=== PATIENT | male | born 1945 | race Caucasian/White ===

== ENCOUNTER 2017-09-13 10:44 | Inpatient (IN) | payer MEDICARE, OTHER ==
[~2017-09-13] VITALS: Ht 170.2 cm; Wt 76.5 kg
[2017-09-13 10:56] VITALS: BP 123/62
[2017-09-13] MEDS ORDERED: REQUIP1 MG PO (11:05)
[2017-09-13] MEDS ORDERED: ZYRTEC 10 MG TA10 MG PO (11:06)
[2017-09-13] MEDS ORDERED: [UNRECOGNIZED DRUG - CODE] PO (11:07)
[2017-09-13] MEDS ORDERED: SIMVASTATIN40 MG PO (11:07)
[2017-09-13] MEDS ORDERED: ZETIA10 MG PO (11:07)
[2017-09-13] MEDS ORDERED: ASPIR 8181 MG PO (11:07)
[2017-09-13] MEDS ORDERED: ARICEPT 5 MG TAB5 MG PO (11:07)
[2017-09-13] MEDS ORDERED: IBUPROFEN 200200 M1 PO (11:08)
[2017-09-13] MEDS ORDERED: MAGOX 400400 MG PO (11:08)
[2017-09-13] MEDS ORDERED: TUMS PO (11:08)
[2017-09-13] MEDS ORDERED: APAP650 PO (11:08)
[2017-09-13] MEDS ORDERED: FISH OIL 1,001000 M2 PO (11:09)
[2017-09-13 11:14] LABS: HEMATOCRIT 38.3 % (42.0-52.0); HEMOGLOBIN 12.7 gm/dL (14.0-18.0); MCHC 33.2 g/dL (28.0-37.0); MCV 93.3 fL (80.0-100.0); MPV 8.2 fl. (7.2-11.1); NUCLEATED RBCS 0 /100WBC; PLATELET COUNT* 322 thou/uL (150-400); RDW-CV 13.4 % (10.5-14.5); WBC 10.7 thou/uL (4.0-11.0)
[2017-09-13 11:25] LABS: INR 1.1; PROTIME 10.6 Seconds (9.20-11.50)
[2017-09-13 11:29] LABS: ANION GAP 9 mmol/L (7-16); BUN 17 mg/dL (7-18); CALCIUM 8.8 mg/dL (8.5-10.1); CHLORIDE 101 mmol/L (98-107); CO2 27 mmol/L (21-32); CREATININE 1.1 mg/dL (0.6-1.3); GLUCOSE 102 mg/dL (70-99); SODIUM 137 mmol/L (136-145)
[2017-09-13 11:48] LABS: ALBUMIN 3.3 g/dL (3.4-5.0); ALKALINE PHOSPHATASE 133 U/L (46-116); CK-MB MASS < 0.5 ng/mL (<0.5-3.6); NT-PRO BRAIN NAT PEPTIDE 580 pg/mL (<300); SGOT 52 U/L (15-37); SGPT 56 U/L (30-65); TOTAL BILIRUBIN 0.5 mg/dL (<0.1-1.0); TOTAL PROTEIN 7.6 g/dL (6.4-8.2); TROPONIN-I LEVEL <0.06 ng/mL (<0.06)
[2017-09-13 11:52] LABS: ABSOLUTE LYMPHOCYTES 1.1 thou/uL (0.8-5.3); ABSOLUTE MONOCYTES 0.7 thou/uL (0.0-1.2); ABSOLUTE NEUTROPHILS 8.9 thou/uL (1.6-8.1); PLATELET ESTIMATE ADEQUATE
[2017-09-13 12:11] LABS: URINE BILIRUBIN NEGATIVE (Negative); URINE BLOOD NEGATIVE (Negative); URINE CLARITY CLEAR; URINE COLOR YELLOW; URINE GLUCOSE-RANDOM NEGATIVE (Negative); URINE KETONES TRACE (Negative); URINE LEUKOCYTES-REFLEX NEGATIVE (Negative); URINE NITRITE-REFLEX NEGATIVE (Negative); URINE PROTEIN TRACE (Negative); URINE UROBILINOGEN 0.2 E.U./dl (0.2-1.0)
[2017-09-13 13:28] VITALS: BP 130/62
[2017-09-13 13:45] VITALS: BP 110/52
[2017-09-14 00:50] VITALS: BP 134/69
[2017-09-14 04:00] VITALS: BP 139/69
[2017-09-14 05:02] LABS: HEMATOCRIT 32.1 % (42.0-52.0); MCH 31.7 pg (26.0-34.0); MCHC 34.1 g/dL (28.0-37.0); MPV 7.4 fl. (7.2-11.1); RBC 3.46 mil/uL (4.50-6.00); WBC 9.1 thou/uL (4.0-11.0)
[2017-09-14 05:17] LABS: CALCIUM 7.5 mg/dL (8.5-10.1); MAGNESIUM 1.7 mg/dL (1.8-2.4); POTASSIUM 3.6 mmol/L (3.5-5.1)
[2017-09-14 09:30] VITALS: BP 116/57
[2017-09-14 11:00] VITALS: BP 103/50
--- NOTE | 2017-09-14 14:29 | EKG ---
[place] [address] ELECTROCARDIOGRAM REPORT Name: MICHELLE MCKAY Room: [address] IN [facility].#: [id number] Admission: 09/13/17 Attend Phys: Sudhakar Churchill, Discharge: Date of : 41 Report #: [id number] THIS REPORT FOR: //name// [facility] ED Test Date: 2017-09-13 Test Time: 11:08:27 Pat Name: MICHELLE MCKAY Department: Room: Gender: Assembler Faucets: Benton LOMAX : 1945 Requested By: Artur Morales Order Number: [id number] MD: Marquise Madrid Measurements Intervals [place] Rate: 77 P: 43 NE: 151 QRS: -1 QRSD: 95 T: 29 QT: 361 QTc: 409 Interpretive Statements Sinus rhythm Abnormal R-wave progression, early transition No previous ECG available for comparison Electronically Signed On 09-14-2017 14:28:53 CDT by Marquise Madrid [email or web address] <ELECTRONICALLY SIGNED> By: Marquise Madrid MD, [facility] 09/14/17 1428 1108 Marquise Madrid MD, FACC /EPI
[2017-09-14 16:00] VITALS: BP 123/65
[2017-09-14 20:00] VITALS: BP 143/64
[2017-09-15] VITALS: BP 136/69
[2017-09-15 03:39] VITALS: BP 138/64
[2017-09-15 05:24] LABS: HEMATOCRIT 32.4 % (42.0-52.0); MCH 31.6 pg (26.0-34.0); MCHC 33.9 g/dL (28.0-37.0); MCV 93.2 fL (80.0-100.0); MPV 7.9 fl. (7.2-11.1); RBC 3.48 mil/uL (4.50-6.00); RDW-CV 13.1 % (10.5-14.5); WBC 9.1 thou/uL (4.0-11.0)
[2017-09-15 05:41] LABS: ALBUMIN 2.4 g/dL (3.4-5.0); CALCIUM 7.7 mg/dL (8.5-10.1); CREATININE 1.1 mg/dL (0.6-1.3); POTASSIUM 3.7 mmol/L (3.5-5.1); TOTAL BILIRUBIN 0.5 mg/dL (<0.1-1.0); TOTAL PROTEIN 6.2 g/dL (6.4-8.2)
[2017-09-15 09:00] VITALS: BP 145/72
[2017-09-15 12:00] VITALS: BP 133/68
[2017-09-15 16:00] VITALS: BP 126/66
[2017-09-15 20:00] VITALS: BP 131/67
[2017-09-16] VITALS: BP 149/79
[2017-09-16 03:49] VITALS: BP 147/75
[2017-09-16 09:30] VITALS: BP 119/62
[2017-09-16 11:45] VITALS: BP 121/68
[2017-09-16 15:52] VITALS: BP 117/62
[2017-09-16 20:00] VITALS: BP 128/68
[2017-09-17] VITALS: BP 140/67
[2017-09-17 04:00] VITALS: BP 131/64
[2017-09-17 08:00] VITALS: BP 148/72
[2017-09-17 11:33] VITALS: BP 135/63
[2017-09-17] MEDS ORDERED: KEFLEX500 M1 PO (13:03)
[2017-09-17] MEDS ORDERED: PREDNISONE 10 M10 MG PO (13:10)
[2017-09-17 13:47] VITALS: BP 135/63
[2017-09-17] MEDS ORDERED: LEVAQUIN 500 M500 M2 PO (15:18)
== END 2017-09-17 16:00 | disposition home or self-care (01) | DRG 871 ==
LOC: M.ERS 10:44 → M.2W 12:24 → M.TBA-ER 12:24 → M.2W 13:45
PROVIDERS: Family Medicine; ADMIT Family Medicine
DX: A41.9 Sepsis, unspecified organism (principal); J69.0 Pneumonitis due to inhalation of food and vomit; G20 Parkinson's disease; E78.00 Pure hypercholesterolemia, unspecified; H10.9 Unspecified conjunctivitis; F02.80 Dementia in other diseases classified elsewhere, unspecified severity, without behavioral disturbance, psychotic disturbance, mood disturbance, and anxiety; D64.9 Anemia, unspecified; Z79.2 Long term (current) use of antibiotics; Z79.82 Long term (current) use of aspirin; Z79.899 Other long term (current) drug therapy; Z82.49 Family history of ischemic heart disease and other diseases of the circulatory system

== ENCOUNTER 2017-10-03 15:42 | Inpatient (IN) | payer MEDICARE, OTHER ==
[~2017-10-03] VITALS: Ht 167.6 cm; Wt 69.9 kg
[~2017-10-03 15:42] MED LIST: APAP650 PO; ARICEPT 5 MG TAB5 MG PO; ASPIR 8181 MG PO; FISH OIL 1,001000 M2 PO; IBUPROFEN 200200 M1 PO; KEFLEX500 M1 PO; LEVAQUIN 500 M500 M2 PO; MAGOX 400400 MG PO; PREDNISONE 10 M10 MG PO; REQUIP1 MG PO; SIMVASTATIN40 MG PO; TUMS PO; ZETIA10 MG PO; ZYRTEC 10 MG TA10 MG PO; [UNRECOGNIZED DRUG - CODE] PO
[2017-10-03 18:27] VITALS: BP 127/59
--- NOTE | 2017-10-03 19:39 | NUR ---
PT. ARRIVED TO REHAB UNIT AT 1800 PER W/C FROM HOME BY PRIVATE CAR. ALERT AND ORIENTED X 4. HX OF S/P SEPSIS ASPIRATION PNEUMONIA WENT HOME WITH OUTPT. THERAPIES BUT WASNT ABLE TO MAKE PROGRESS SO ADMITTED TO INPT. REHAB. ORIENTED TO ROOM 321 AND AND DAUGHTER HERE PT. AND FAMILY ANSWERED QUESTIONS ON ADMISSION ASSESSMENT. SKIN INTACT NO OPEN AREAS. VOIDED 50CCS PER URINAL HUY URINE. NEEDS ASSIST WITH TURNING STIFFNESS PARKINSONS HX OF CHRONIC BACK PAIN HAS BONE PAIN STIMULATOR RT. LOWER BACK WILL CHARGE IT DAILY. DID C/O LOW BACK PAIN WHILE IN W/C. ONCE IN BED NO FURTHER C/O PAIN. TRANSFERS WITH 2 ASSIST FROM W/C TO BED WITH GAIT BELT AND CUES. REASSURED PT. WILL GET STRONGER AND WILL BE BUSY WITH THERAPIES TOMORROW. CALL LIGHT CONVENIENT FOR PT. USE. REPORT TO NEXT SHIFT.
[2017-10-04 04:48] LABS: HEMATOCRIT 34.7 % (42.0-52.0); HEMOGLOBIN 11.3 gm/dL (14.0-18.0); MCH 30.3 pg (26.0-34.0); MCHC 32.6 g/dL (28.0-37.0); RBC 3.73 mil/uL (4.50-6.00); RDW-CV 14.8 % (10.5-14.5); WBC 12.7 thou/uL (4.0-11.0)
[2017-10-04 04:58] LABS: CALCIUM 8.8 mg/dL (8.5-10.1); POTASSIUM 4.2 mmol/L (3.5-5.1)
--- NOTE | 2017-10-04 05:04 | NUR ---
ASSUMED CARES AT 1915. PT ALERT AND ORIENTED. PLEASANT AND COOPERATIVE. AND DAUGHTER HERE FOR SHORT TIME BEFORE LEAVING. PT DENIED ANY NEED FOR PAIN MEDS. HAS PRODUCTIVE COUGH. COUGHING UP THICK PHLEGM. MUCINEX GIVEN. TAKES PILLS WHOLE WITHOUT ISSUES. NURSING ASSISTED PT WITH URINAL. PT TURNED THROUGHOUT THE NIGHT. SLEPT WELL OTHERWISE. USING CALL LIGHT APPROPRIATELY. BED ALARM ON.
[2017-10-04 07:41] VITALS: BP 123/58
[2017-10-04 08:02] VITALS: BP 123/58
--- NOTE | 2017-10-04 17:44 | NUR ---
ASSUMED CARE AT 0730 PATIENT ALERT/ORIENTED, PAIN MED GIVEN AT 1200 FOR LEFT SHOULDER PAIN, UP WITH MAX OF ONE AND WALKER/GAIT BELT. PARTICIPATED IN ALL THERAPIES TODAY, TO DINING ROOM FOR MEALS, HOURLY ROUNDING COMPLETED. BED/CHAIR ALARMS IN PLACE, CALL LIGHT IN REACH.
--- NOTE | 2017-10-04 20:00 | NUR ---
SITTING UP IN RECLINER. PAIN MED GIVEN FOR C/O BACK PAIN RATED "5". TOOK MEDS WHOLE WITH WATER - TWO SMALL MEDS AT A TIME AND ONE BIG PILL AT A TIME. SAW PATIENT GETTING OUT OF HIS RECLINER WITHOUT CALLING FOR ASSIST. PATIENT STATES WAS TRYING TO USE HIS URINAL. PATIENT WAS INCONTINENT. INCONTINENT PAD WAS SATURATED AND URINE SPILLED ONTO THE FLOOR. TRANSFERRED FROM RECLINER TO THE BED WITH CGA, GAITBELT, CUEING. LEGS LIFTED INTO BED. PATIENT UNABLE TO STRAIGHTEN HIS BACK. SCROTUM SLIGHTLY RED. KASSY CARE GIVEN AND MOISTURE BARRIER APPLIED.
[2017-10-04 20:03] VITALS: BP 106/56
--- NOTE | 2017-10-05 05:23 | NUR ---
RESTED QUIELTY. NO FURTHER C/O PAIN. CALLED FOR ASSIST WITH THE URINAL DURING THE NIGHT. HOURLY ROUNDING IN PROGRESS.
[2017-10-05 08:24] VITALS: BP 120/60
--- NOTE | 2017-10-05 18:03 | NUR ---
ASSUMED CARE AT 0730 PATIENT ALERT/ORIENTED, NO COMPLAINTS OF PAIN THIS SHIFT, UP WITH ASSIST OF ONE AND WALKER/GAIT BELT, HOURLY ROUNDING COMPLETED, BED/CHAIR ALARMS IN PLACE, CALL LIGHT IN REACH. TO DINING ROOM FOR MEALS, VISITED WITH FAMILY ALL DAY. ORDER PLACED FOR NEUROLOGY CONSULT BY DR DANIEL. WILL VERIFY WITH DR MCKEON IN AM IF SHE WANTS THIS CONSULT OR NOT.
[2017-10-05 19:30] VITALS: BP 120/68
--- NOTE | 2017-10-05 20:25 | NUR ---
RESTING QUIETLY IN BED AND WATCHING TV. ASSISTED WITH REPOSITIONING. PAIN MED GIVEN FOR C/O BACK PAIN. TAKES 2 SMALL PILLS WHOLE AT A TIME AND BIG PILLS WHOLE ONE AT A TIME WITH WATER. VOIDED DARK/YELLOW URINE PER URINAL. STAFF POSITIONS HOLDS AND EMPTIES URINAL.
[2017-10-05 21:08] LABS: INR 1.1; PROTIME 10.4 Seconds (9.20-11.50)
--- NOTE | 2017-10-06 05:09 | NUR ---
RESTED QUIETLY. CALLED FOR ASSIST WITH URINAL. HOURLY ROUNDING IN PROGRESS.
[2017-10-06 08:01] VITALS: BP 120/71
--- NOTE | 2017-10-06 14:47 | NUR ---
SW met with pt pt to complete initial assessment, introduce self, and SW role. Pt alert and oriented. Pt lives at home with who can be with him all of the time. Pt has walker and grab bars. Pt does not recall and history of services. Pt expressed having back pain but was hopeful he could have that managed and be able to return home safely. Pt did not express any questions or concerns at this time. SW to continue to follow to assist with safe dc planning.
--- NOTE | 2017-10-06 15:11 | NUR ---
ASSUMED CARE AT 0730. ALERT ORIENTED PLEASANT COOPERATIVE. HX OF PARKINSONS AND S/P ASPIRATION PNEUMONIA. TRANSFERS WITH MIN ASSIST FROM LYING TO SITTING POSITION SIDE OF BED ABLE TO AMBULATE A FEW STEPS FROM BED TO RECLINER CHAIR FOR BREAKFAST. USED URINAL WITH NURSE ASSIST VOIDED 100CCS DARK HUY URINE KASSY CARE GIVEN AND PULLUP APPLIED. FEEDS SELF WITH SETUP. PARTICIPATING IN THERAPIES THROUGHOUT THE DAY. TO DR REINOSO W/C FOR MEALS FAMILY HERE MUCH OF THE DAY. TAKES MEDS 1-2 AT A TIME WITH WATER WITHOUT DIFFICULTY. HAS A BRACE HE WEARS FOR CHRONIC BACK ISSUES AND ALSO HAS NERVE STIMULATOR MEDICATED X 1 WITH IBUPROFEN BEFORE THERAPIES START THIS A.M. PAULA WAS CALLED FOR ADJUSTMENT AND DR. VASQUEZ WAS ONSULTED RE PARKINSONS HERE AT 1525 TO SEE PT. USES CALL LIGHT APPROPRIATELY FOR ASSIST. WAFFLE CUSHION PLACED IN RECLINER.
[2017-10-06 19:30] VITALS: BP 116/62
--- NOTE | 2017-10-07 05:00 | NUR ---
ASSUMED CARES AT 1920. PT ALERT AND ORIENTED. PLEASANT. C/O BACK PAIN. IBUPROFEN GIVEN. TAKES PILLS WHOLE WITHOUT ISSUES. HAS DRIBBLING WITH URINATION. NURSING ASSISTS WITH URINAL PLACEMENT. NEEDS ASSIST WITH URINARY ACCIDENTS. DOES HAVE LOOSE COUGH. MUCINEX GIVEN. SLEPT OFF AND ON. CALL LIGHT IN REACH. BED ALARM ON.
[2017-10-07 07:50] VITALS: BP 134/77
--- NOTE | 2017-10-07 18:03 | NUR ---
ASSUMED CARE AT 0730. ALERT ORIENTED PLEASANT COOPERATIVE. HX OF PARKINSONS AND ASPIRATION PNEUMONIA HX. TRANSFERS WITH 1 ASSIST G BELT WALKER CUES. MEDICATED WITH PRN MED FOR C/O BACK PAIN WITH SOME RELIEF STATED. PARTICIPATING IN THERAPIES THROUGHOUT THE DAY. TAKES MEDS WITHOUT DIFFICULTY IN APPLESAUCE WHOLE. FAMILY HERE MOST OF THE DAY. TO DR FOR LUNCH MEAL. APPETITE GOOD. FEEDS SELF WITH SET UP. USES CALL LIGHT APPROPRIATELY FOR ASSISTANCE.
[2017-10-07 19:58] VITALS: BP 132/76
--- NOTE | 2017-10-08 05:07 | NUR ---
ASSUMED CARES AT 1920. PT ALERT AND ORIENTED. PLEASANT. C/O BACK PAIN. IBUPROFEN AND TYLENOL GIVEN. TAKES PILLS WHOLE WITHOUT ISSUES. HE IS MOD ASSIST WITH GAIT BELT AND WALKER. UP TO BATHROOM. NEEDS CUEING FOR PROPER POSTURE. TENDS TO LEAN FORWARD. LIFTING ASSIST FROM SIT TO STAND. NURSING ASSISTED WITH URINAL PLACEMENT. ASSISTED WITH PERICARES DUE TO DRIBBLING. HAS LOOSE COUGH. MUCINEX GIVEN. HAD MORE COUGHING TONIGHT. DID NOT SLEEP WELL. HE SAYS IS MORE SORE DUE TO THERAPIES. SLEPT OFF AND ON. CALL LIGHT IN REACH AND BED ALARM ON.
[2017-10-08 07:48] VITALS: BP 134/71
--- NOTE | 2017-10-08 08:00 | NUR ---
Pt resting in bed, appears alert o x4, denies chest pain, SOB, does C/O chronic back pain, generalized weakness, up with therapy w/c and walker/gait belt, wears neuro-stimulator for back pain
--- NOTE | 2017-10-08 15:59 | NUR ---
pt up in chair most of day, remains alert o x 4, C/O generalized weakness, needs min-mod assit with transfers, able to bathe self at sink with set up, once up in W/C., could brush teeth Pt needs min-mod assit with ambulation, amb with walker, C/O generalized back pain. Can feed self with set up. Difficulty dressing self secondaery to generalized weakness. UNable to perform taskes independently other tahn feeding self. Spouse here most of day. needs assistance with urinal, dribbles. Unable to toliet self independently
[2017-10-08 19:58] VITALS: BP 130/75
--- NOTE | 2017-10-08 23:31 | NUR ---
ASSUMED CARE AT 1930. RESTING IN RECLINER UNTIL AROUND 2099. WAS CHARGING HIS BONE STIMULATOR. HERE UNTIL AROUND 2029. UP WITH MIN LIFTING, GAIT BELT, WALKER, NEEDS HELP GETTING BOTH LEGS INTO BED. VOIDED PER TOILET AT HS, THEN USES URINAL REST OF NIGHT WITH NURSING ASSISTING WITH PLACEMENT. NEEDS CUEING TO STAND TALL DUE TO SCOLIOSIS. DENIED PAIN AT HS. TAKES PILLS WHOLE WITH APPLESAUCE. NO COUGH NOTED. HAD LARGE BM THIS EVENING. HOURLY ROUNDS CONTINUE. BED ALARM ON. CALL LITE IN REACH.
--- NOTE | 2017-10-09 05:55 | NUR ---
SLEPT MUCH OF THE NIGHT, VOIDS PER URINAL. NURSING ASSISTS WITH PLACEMENT OF URINAL. TURNED Q2H. NO C/O PAIN. HOURLY ROUNDS CONTINUE. BED ALARM ON. CALL LITE IN REACH.
--- NOTE | 2017-10-09 06:41 | NUR ---
HAS BEEN VOIDING IN 75-150 ML INCREMENTS OF HUY URINE. BLADDER SCANNED IMMEDIATELY AFTER VOIDING, MAX RESIDUAL FOUND WAS 63 ML. PATIENT STATES HE FEELS LIKE HE EMPTIES BLADDER.
[2017-10-09 07:50] VITALS: BP 138/74
--- NOTE | 2017-10-09 15:36 | NUR ---
SW met with pt and pt family to review team conference summary. Plan for pt to remain on rehab at least another week and for team to reassess pt length of stay during team conference on next Friday. Pt in agreement with plan as well as pt family. Pt and pt family were upset that pt was received speech therapy and team is aware and addressing situation with pt and pt family. SW to continue to follow to assist with safe dc planning.
--- NOTE | 2017-10-09 18:04 | NUR ---
PATIENT RESTING IN CHAIR. PATIENT WORKED WITH THERAPIES TODAY. PATIENT DOES NOT LIKE OR WANT SPEECH THERAPIES ANYMORE, CYNTHIA AND WAI NOTIFIED. CYNTHIA SAT DOWN WITH PATIENT AND FAMILY ABOUT SPEECH THERAPY. CYNTHIA SPOKE WITH DR MCKEON WHO IS TO TALK WITH PATIENT IN AM. PATIENT HAD COMPLAINTS OF BACK PAIN THIS AM, DENIED NEED FOR MEDICATION THIS AFTERNOON. PATIENT IS UP WITH MODERATE ASSIST WITH GAIT BELT AND WALKER. PATIENT USES URINAL. PATIENT DENIES ANY NEEDS AT THIS TIME. CALL LIGHT WITHIN REACH. WILL CONTINUE TO MONITOR
[2017-10-09 20:00] VITALS: BP 109/62
--- NOTE | 2017-10-10 05:04 | NUR ---
ASSUMED PT CARE AT 1930. PT SITTING UP IN RECLINER AT SHIFT CHANGE. UP WITH LIFTING ASSIST, GAIT BELT AND WALKER. NEEDS HELP GETTING BOTH LEGS INTO BED. TAKES PILLS WHOLE IN APPLESAUCE. PRN PAIN MEDICATION HS FOR BACK PAIN. TURNED Q2H. USED URINAL OVERNIGHT WITH STAFF HOLDING AND EMPTYING. CALL LIGHT AND FREQUENTLY USED ITEMS WITHIN REACH. USES CALL LIGHT APPROPRIATELY. BED ALARM ON FOR SAFETY. HOURLY ROUNDING IN PROGRESS, WILL CONTINUE TO MONITOR.
[2017-10-10 08:00] VITALS: BP 134/71
--- NOTE | 2017-10-10 15:23 | NUR ---
I have reviewed the documentation by MELI FLORES from 10/09/17 to 10/10/17 and I concur with it. DION NAZARIO.
--- NOTE | 2017-10-10 16:41 | NUR ---
ASSUMMED CARE OF PT AT 0730, PT ALERT, FORGETFUL, TRANSFERS WITH ASSIST OF 1, GB WALKER CUEING, PT DENIES PAIN, MIDLINE DRESSING C/D/I, ILEOSTOMY DRAINING MODERATE AMOUNT OF LIQUID STOOL, APPLIANCE LEAKING, CHANGED X 1 THIS SHIFT, PT TOLERATING NECTAR THICK LIQUIDS, TAKES PILLS CRUSHED IN APPLESAUCE, MUCOUS DRAIN IN LEFT ABDOMEN INTACT, ABDOMINAL BINDER INTACT, PT C/O BLADDER SPASMS, MEDICATED PER ORDER, BLOODY URINE IN CATHETER BAG, PT ENCOURAGED TO DRINK MORE LIQUIDS, PT FALLS ASLEEP EASILY IF NOT STIMULATED, PARTCIPATED IN ALL THERAPIES, HOURLY ROUNDING COMPLETED, TO DININGROOM FOR MEALS, ASSESSMENT COMPLETE, WILL CONTINUE TO MONITOR.
--- NOTE | 2017-10-10 18:24 | NUR ---
ASSUMED CARE AT 0730, PATIENT ALERT/ORIENTED, UP WITH ASSIST OF ONE AND WALKER GAIT BELT, NO COMPLAINTS OF PAIN THIS SHIFT, PARTICIPATED IN ALL THERAPIES TODAY, TO DINING ROOM FOR MEALS, BED/CHAIR ALARMS IN PLACE, CALL LIGHT IN REACH, HOURLY ROUNDING COMPLETED.
[2017-10-10 19:21] VITALS: BP 119/67
--- NOTE | 2017-10-10 19:30 | NUR ---
RESTING QUIETLY IN BED WATCHING TV AND VISITING WITH AND DAUGHTER. IN GOOD SPIRITS - MAKING JOKES. PAIN MEDS GIVEN FOR C/O BACK PAIN RATED "7". TOOK MEDS WHOLE WITH WATER - TWO SMALL ONES AT A TIME AND ONE BIG ONE AT TIME. REQUIRES CRUZ TO BE POSITIONED HELD AND EMPTIED. VOIDS HUY URINE. VOIDS FREQUENTLY AND HAS HESITANCY.
--- NOTE | 2017-10-11 05:39 | NUR ---
RESTED ON/OFF. COUGHS INTERMITTENTLY THROUGHOUT THE NIGHT. PRN MUCINEX WAS GIVEN WITH HS MEDICATIONS. PRN IBUPROFEN GIVEN AT 0252 FOR C/O BACK PAIN RATED "5" WITH RELIEF. ASSISTED WITH REPOSITIONING AND USING THE URINAL THROUGHOUT THE NIGHT. VOIDS 25CC TO 50CC OF URINE AT A TIME. HOURLY ROUNDING IN PROGRESS.
[2017-10-11 07:30] VITALS: BP 124/61
--- NOTE | 2017-10-11 16:40 | NUR ---
ASSUMED CARE AT 0730. ANNABELLE GASPAR [facility]. HX OF PARKINSONS S/P SEPSIS AND ASPIRATION PNEUMONIA. TRANSFERS WITH MIN ASSIST G BELT WALKER AMBULATES FROM BED TO RECLINER FOR BREAKFAST FEEDS SELF WITH SET UP TAKES MEDS WITH APPLESAUCE WITHOUT DIFFICULTY. PARTICIPATES IN THERAPY. VOIDS PER URINAL 50CCS HUY URINE SEVERAL TIMES VOIDED X 1 IN TOILET. AND DAUGHTER HERE VISITING THROUGH THE DAY. USES CALL LIGHT FOR ASSISTANCE BED CHAIR ALARM FOR PT. SAFETY.
[2017-10-11 19:35] VITALS: BP 143/80
--- NOTE | 2017-10-11 20:00 | NUR ---
SITTING UP IN RECLINER WITH LEGS ELEVATED. PAIN MEDS GIVEN FOR C/O BACK PAIN. TOOK MEDS WHOLE WITH WATER. DAUGHTER AND VISITING. TRANSFERRED FROM RECLINER TO BED WITH CGA, GAITBELT, WALKER, CUEING.
--- NOTE | 2017-10-12 05:29 | NUR ---
ASSISTED WITH REPOSITIONING AND USING THE URINAL THROUGHOUT THE NIGHT. DENIED ANY NEED FOR MORE PAIN MEDS. HOURLY ROUNDING IN PROGRESS.
[2017-10-12 07:30] VITALS: BP 117/64
--- NOTE | 2017-10-12 15:05 | NUR ---
ASSUMED CARE AT 0730. ALERT ORIENTED PLEASANT COOPERATIVE. HX OF PARKINSONS. TRANSFERS WITH 1 ASSIST G BELT WALKER NEEDS ASSIST TO GET FROM LYING TO SITTING ON EDGE OF BED. AMBULATES WITH WALKER FROM BED TO RECLINER FOR BREAKFAST MEAL FEEDS SELF TAKES MEDS WITH APPLESAUCE WITHOUT DIFFICULTY. VOIDS PER URINAL SMALL AMTS DARK HUY URINE WITH ASSIST FOR PLACEMENT. MEDICATED X 1 FOR C/O BACK PAIN AROUND LUNCH TIME. HX OF CHRONIC BACK PAIN WALKS HUNCHED OVER WITH WALKER CAN'T STAND UP STRAIGHT. DAUGHTER HERE MOST OF THE DAY AT BEDSIDE. UP IN RECLINER MOST OF THE DAY LYING IN BED ALSO AT TIMES.
[2017-10-12 19:54] VITALS: BP 119/66
--- NOTE | 2017-10-12 22:25 | NUR ---
ASSUMED CARE AT 1930. PATIENT RESTING IN RECLINER WITH LEGS ELEVATED AND HEELS OFFLOADED VISITING WITH FAMILY. TO BED AROUND 2014. UP WITH ONE, GAIT BELT, WALKER, CUEING. TOOK PILLS IN ENSURE PUDDING BECAUSE OF POOR PO INTAKE TODAY. TOLERATED WELL. VOIDS 50-100 ML PER URINAL, NURSING ASSISTS WITH PLACEMENT AND EMPTIES. TQ2. TOOK IBUPROFEN AT HS. HOURLY ROUNDS CONTINUE. BED ALARM ON. CALL LITE IN REACH.
--- NOTE | 2017-10-13 06:11 | NUR ---
SLEPT OFF AND ON THROUGH THE SHIFT. MEDICATED FOR PAIN TWICE WITH RELIEF. ASSISTED WITH TURNS. VOIDS PER URINAL, NURSING ASSISTS WITH PLACEMENT AND EMPTIES. HOURLY ROUNDS CONTINUE. BED ALARM ON. CALL LITE IN REACH.
[2017-10-13 07:30] VITALS: BP 119/63
--- NOTE | 2017-10-13 09:40 | CON ---
[facility] [address] [place] [address] CONSULTATION Name: MICHELLE MCKAY Room: [address] IN M.R.#: [id number] Admission: 10/03/17 Attend Phys: Chichi Jorgensen DO Discharge: Date of : 41 Report #: [id number] THIS REPORT FOR: //name// CC: Chichi Mendieta DATE OF SERVICE: 10/06/2017 HISTORY OF PRESENT ILLNESS: This is a 72-year-old male patient who was evaluated by me for the possibility of Parkinson disease. This patient gives a history that he was diagnosed with Parkinson disease at [facility]. He had some back problems and he saw his surgeon who referred him to a neurologist and she diagnosed him with Parkinson disease. He was given some medication, but he does not remember. We will try to get the record from his neurologist. He has been here because of failure to try and he also had some question of aspiration pneumonia. He said he did not have much tremor and it was mostly the rigidity. His memory is poor and his family is not here. REVIEW OF SYSTEMS: Indicate he does have trouble with aspiration pneumonia. He did have some workup done with his neurologist. He thinks he may have had a SAFIA scan also. He thinks either he had an MRI or a CAT scan. He is on donepezil but I do not know whether they found him to have dementia. He does have a history of high cholesterol. He has a nerve stimulator and he had a back surgery. This history is from him. It needs to be confirmed. That was his relevant 14-point review of systems. PAST MEDICAL HISTORY: Positive for Parkinson disease. FAMILY HISTORY: Negative for any essential tremor. SOCIAL HISTORY: Unremarkable. PHYSICAL EXAMINATION: Indicate he is alert, he is responsive. He can follow simple commands. He is oriented. His speech, concentration looks unremarkable. He does appear to be somewhat rigid in all 4 extremities. Cranial nerve examination 2-12 is unremarkable. He does not have much tremor. He does have blank faces. His neuromuscular examination is symmetrical. He is moderately built individual. He does not have any dysmorphic features of eyes, ears and face. His vision and hearing looks adequate. His blood pressure is 120/71, respirations 16, pulse 65, temperature is 98.6. His cardiac examination is unremarkable. There is no respiratory difficulty or rhonchi. LABORATORY DATA: His white count is 12.7. His GFR is 73. He does not have any imaging study here. IMPRESSION: Clinically, it does look like this [place] [address] CONSULTATION Name: MICHELLE MCKAY Room: [address] IN [facility].#: [id number] Admission: 10/03/17 Attend Phys: Chichi Jorgensen DO Discharge: Date of : 41 Report #: [id number] It is mainly manifested as rigidity but he already has his workup done at another facility instead of getting the workup done again. I will try to get the record from there and see if we can look at that record and see what they did and decide some treatment on him. Thank you very much for this referral and we will follow this patient along with you. <ELECTRONICALLY SIGNED> By: Pranav Stevens MD 10/13/17 0940 1750 [id number] Stevens MD /nt
--- NOTE | 2017-10-13 10:08 | NUR ---
SW met with pt and pt in preparation for team conference on Friday. Pt and pt felt that pt was making progress in therapies and they hoped pt would be able to dc home soon. Pt concerned that he does not sleep well and both pt and pt think that pt is close to functioning as he was prior to hospitalization. Pt said pt dtr is helpful at home as well. SW to continue to follow to assist with safe dc planning.
--- NOTE | 2017-10-13 14:47 | NUR ---
ASSUMED CARE AT 0730. ALERT ORIENTED PLEASANT COOPERATIVE. HX OF PARKINSONS SEPSIS ASPIRATION PNEUMONIA. TRANSFERS WITH 1 ASSIST G BELT WALKER AND AMBULATES TO RECLINER FOR BREAKFAST FEEDS SELF TAKES MEDS WITH APPLESAUCE WITHOUT DIFFICULTY. HERE VISITING. PARTICIPATING IN THERAPIES THROUGHOUT THE DAY. S.T. UPGRADED TO REGULAR DIET AFTER EVALUATING SWALLOW AT LUNCH. RECEIVED ENSURE ENLIVE WITH LUNCH MEAL. MEDICATED X1 FOR CHRONIC BACK PAIN WITH PRN IBUPROFEN WITH SOME RELIEVE STATED. VOIDED SMALL AMTS HUY URINE PER URINAL ALSO HAD LARGE FORMED BM THIS A.M.
[2017-10-13 19:55] VITALS: BP 124/73
--- NOTE | 2017-10-13 20:10 | NUR ---
SITTING UP IN RECLINER WITH LEGS ELEVATED. AND DAUGHTER IN ROOM VISITING. PAIN MEDS GIVEN FOR C/O BACK PAIN. TAKES MEDS WHOLE TWO AT A TIME WITH WATER. TRANSFERRED FROM CHAIR TO BED WITH CGA, GAITBELT, WALKER, SOME LIFTING ASSIST WITH GETTING LEFT LEG INTO BED.
[2017-10-14 08:15] VITALS: BP 114/59
--- NOTE | 2017-10-14 16:19 | NUR ---
PATIENT DEPENDENT WITH URINAL USE. UP WITH GAIT BELT/ WALKER TO CHAIR AND WHEELCHAIR. PRN TYLENOL GIVEN THIS AM FOR SHOULDER PAIN, NO FURTHER COMPLAINTS.
[2017-10-14 19:30] VITALS: BP 114/60
--- NOTE | 2017-10-14 19:50 | NUR ---
SITTING UP IN RECLINER. HAS NERVE STIMULATOR DEVICE CONNECTED. DISCONNECTED THE DEVICE AFTER IT WAS ON FOR 30 MINUTES. TRANSFERRED FROM RECLINER TO BED WITH MODERATE ASSIST OF ONE, GAITBELT, WALKER, STAND, PIVOT. REQUIRED LIFTING ASSIST TO GET FROM SITTING TO STANDING. PATIENT WASN'T ABLE TO STAND UNTIL THE SECOND ATTEMPT. ALSO REQUIRED ASSIST WITH GETTING LEGS INTO BED. PAIN MEDS GIVEN FOR C/O BACK PAIN. TOOK PILLS WHOLE TWO AT A TIME WITH WATER - TOOK BIG PILLS ONE AT A TIME.
--- NOTE | 2017-10-15 05:08 | NUR ---
CALLED X 3 DURING THE NIGHT FOR ASSIST WITH USING THE URINAL. NO FURTHER COMPLAINT OF PAIN. HOURLY ROUNDING IN PROGRESS.
[2017-10-15 07:52] VITALS: BP 125/51
--- NOTE | 2017-10-15 15:45 | NUR ---
SW met with pt and pt and pt dtr to review team conference summary. Plan for pt to possibly dc on Friday if goals are met or dc Friday if one more day of therapy is necessary. Pt and pt family in agreement with plan. SW to discuss pt to stay with pt overnight Friday in preparation for pt dc. SW and pt/family discussed follow up services most likely recommending HH services at dc and pt/family also want possibility of OP therapy services. SW to continue to follow to assist with safe dc planning.
--- NOTE | 2017-10-15 18:02 | NUR ---
ASSUMED CARE AT 0730 PATIENT ALERT/ORIENTED, UP WITH ASSIST OF ONE AND WALKER/GAIT BELT. IBUPROFEN GIVEN X2 FOR CHRONIC BACK PAIN. PARTICIPATED IN ALL THERAPIES TODAY, TO DINING ROOM FOR MEALS, BED/CHAIR ALARMS IN PLACE, CALL LIGHT IN REACH, HOURLY ROUNDING COMPLETED.
[2017-10-15 19:53] VITALS: BP 128/75
--- NOTE | 2017-10-16 00:48 | NUR ---
ASSUMED CARE @ 1934-10-15.SITS IN RECLINER W/ LE'S UP. & LATER,DAUGHTER BOTH VISITING.CHAIR ALARM PUT ON @ 1934.SEE PAIN MANAGEMENT @ 2036.PER PATIENT-TURNS SELF @ NIGHT.HOB UP.BED ALARM PUT ON @ 2129.ON HOURLY ROUNDS.SEE POSITION CHANGE CHARTING.
--- NOTE | 2017-10-16 05:43 | NUR ---
SLEEPING SINCE 2299.BRP X1 FOR LARGE BM @ 2114.USED URINAL W/ ASSIST X3. NURSE PUTS,HOLDS,REMOVES & EMPTIES URINAL @ NIGHT.TOOK ALL CHOCOLATE PUDDING HS SNACK.
[2017-10-16 07:59] VITALS: BP 140/73
--- NOTE | 2017-10-16 18:50 | NUR ---
ASSUMED CARE AT 0730, PATIENT ALERT/ORIENTED, IBUPROFEN GIVEN THIS AM FOR BACK PAIN WITH FAIR RESULTS, UP WITH ASSIST OF ONE AND WALKER/GAIT BELT. PARTICIPATED IN ALL THERAPIES TODAY, TO DINING ROOM FOR MEALS, BED/CHAIR ALARMS IN PLACE, CALL LIGHT IN REACH, HOURLY ROUNDING COMPLETED.
[2017-10-16 19:20] VITALS: BP 121/67
--- NOTE | 2017-10-16 20:30 | NUR ---
UP IN RECLINER WITH LEGS ELEVATED AT SHIFT CHANGE UNTIL 2029 WHEN ASSISTED TO BED. TRANSFERRED FROM RECLINER TO BED WITH CGA, GAITBELT, WALKER, CUEING AND SOME LIFTING ASSIST WITH GETTING LEGS INTO BED. VOIDS DARK/YELLOW URINE PER URINAL. STAFF POSITION, HOLDS AND EMPTIES URINAL. IBUPROFEN GIVEN FOR C/O BACK PAIN WITH RELIEF. TOOK MEDS WHOLE TWO AT A TIME WITH WATER.
--- NOTE | 2017-10-17 05:15 | NUR ---
CALLED FOR ASSIST WITH URINAL X 3. NO FURTHER C/O PAIN. HOURLY ROUNDING IN PROGRESS.
[2017-10-17 07:55] VITALS: BP 140/74
[2017-10-17 08:00] VITALS: BP 140/79
--- NOTE | 2017-10-17 12:14 | NUR ---
SW discussed with pt and pt and scheduled with pt to stay with pt Friday night in the hospital as part of family training and family readiness for pt pending dc either Friday or Friday if needed. Pt and pt in agreement with plan. SW to continue to follow to assist with finalizing safe dc plan.
--- NOTE | 2017-10-17 17:25 | NUR ---
PT PARTICIPATED IN ALL THERAPIES. TOLERATED PO WELL. PT DENIES PAIN. PT CONFUSED AT TIMES BUT EASILY REDIRECTED. PT UP WITH STEADY GAIT AND CANE. DAUGHTERS AT BS AND UPDATED ON POC
[2017-10-17 20:00] VITALS: BP 118/68
--- NOTE | 2017-10-17 23:34 | NUR ---
ASSUMED CARE AT 930. PATIENT RESTED IN RECLINER WITH LEGS ELEVATED AND HEELS OFFLOADED UNTIL AROUND 2100. UP WITH MIN LIFTING, GAIT BELT, WALKER, CUEING. NEEDED HELP GETTING LEFT LEG INTO BED. VOIDS PER URINAL, STAFF POSITIONS AND EMPTIES. REFUSES TO LIE ON SIDE DUE TO BACK PAIN. REMOVED PILLOW THIS NURSE USED AND TURNS SELF. TAKES PILLS TWO AT A TIME WITH WATER WITHOUT DIFF. IBUPROFEN GIVEN AT HS. HOURLY ROUNDS CONTINUE. BED ALARM ON. CALL LITE IN REACH.
--- NOTE | 2017-10-18 06:18 | NUR ---
APPEARED SLEEPING OBSERVED ON HOURLY ROUNDS, EXCEPT WHEN AWAKE TO VOID. REFUSES TO LIE ON SIDE DESPITE EDUCATION, TURN SELF A LITTLE IN THE BED. NEES HELP GETTING URINAL PLACE, NURSING EMPTIES. NO FURTHER C/O PAIN. HOURLY ROUNDS CONTINUE. BED ALARM ON. CALL LITE IN REACH.
[2017-10-18 08:11] VITALS: BP 136/65
--- NOTE | 2017-10-18 18:00 | NUR ---
ASSUMED CARE AT 0730 PATIENT ALERT/ORIENTED, IBUPROFEN GIVEN X1 FOR BACK PAIN, UP WITH ASSIST OF ONE AND WALKER/GAIT BELT. HOURLY ROUNDING COMPLETED, BED/CHAIR ALARMS IN PLACE, CALL LIGHT IN REACH. PARTICIPATED IN ALL THERAPIES TODAY, TO DINING ROOM FOR MEALS.
[2017-10-18 20:00] VITALS: BP 134/62
--- NOTE | 2017-10-19 05:15 | NUR ---
ASSUMED PT CARE AT 1930. PT ALERT AND ORIENTED X4, POLITE AND COOPERATIVE WITH CARES. SITTING UP IN RECLINER WITH LEGS ELEVATED VISITING WITH FAMILY. UP WITH ONE, GAIT BELT AND WALKER, CUEING, PT ABLE TO LIFT BOTH LEGS INTO BED BY HIMSELF. PT REFUSES TO LIE ON SIDE DUE TO BACK PAIN AND REFUSES TURNS DESPITE EDUCATION. IBUPROFEN AT HS FOR BACK PAIN. PT TAKES PILLS A FEW AT A TIME WITH WATER WITHOUT DIFFICULTY. PT VOIDS PER URINAL, STAFF PLACES, HOLD AND EMPTIES. PT HAS VOIDED FOUR TIMES THUSFAR THIS SHIFT. CALL LIGHT AND FREQUENTLY USED ITEMS WITHIN REACH. BED ALARM ON FOR SAFETY. HOURLY ROUNDING IN PROGRESS, WILL CONTINUE TO MONITOR.
[2017-10-19 08:00] VITALS: BP 129/75
--- NOTE | 2017-10-19 17:49 | NUR ---
ASSUMED CARE AT 0730 PATIENT ALERT/ORIENTED, IBUPROFEN GIVEN THIS AM FOR BACK PAIN WITH GOOD RELIEF, UP WITH ASSIST OF ONE AND WALKER. TO SPEND NIGHT TONIGHT AND DO ALL CARES FOR PATIENT WITH STAFF PRESENT. HAS BEEN HELPING THIS SHIFT WITH PATIENT ALSO WITH VERY LITTLE ENCOURAGEMENT/REDIRECTION FROM STAFF. HOURLY ROUNDING COMPLETED, CALL LIGHT IN REACH, BED/CHAIR ALARMS IN PLACE. TO BE DISCHARGE TO HOME TOMORROW
[2017-10-19 19:30] VITALS: BP 128/66
[2017-10-20] MEDS ORDERED: COLACE100 MG PO (00:35)
[2017-10-20] MEDS ORDERED: TYLENOL325 MG PO (00:41)
[2017-10-20] MEDS ORDERED: MELATONIN5 M1 PO (00:43)
[2017-10-20] MEDS ORDERED: IBUPROFEN 200200 M1 PO (01:49)
[2017-10-20 01:50] VITALS: BP 128/66
--- NOTE | 2017-10-20 05:24 | NUR ---
PT SLEPT FAIRLY WELL OVERNIGHT.IBUPROFEN GIVEN TWICE FOR CO BACK PAIN WITH GOOD RELIEF. UP IN RECLINER AT START OF SHIFT, PLEASANT AND COOPERATIVE AOX4. UP WITH GB WALKER AND SBA FROM CHAIR TO BED, ABLE TO LIFT OWN LEGS INTO BED AND REPOSITION HIMSELF FOR COMFORT INDEPENDENTLY. AT BEDSIDE THIS SHIFT, HAS BEEN ASSISTING PT WITH TRANSFERS AND URINAL-PLACES AND EMPTIES IT FOR PT. MOVES IN BED INDEP SMALL AMOUNTS, STATES TOO PAINFUL TO ROLL COMPLETELY TO ONE SIDE OR THE OTHER-EDUCATION GIVEN REGARDING REPOSITIONING AND SKIN INTEGRITY. TAKING PILLS WITH WATER AT HS WITHOUT DIFFICULTY. ANTICIPATING DISCHARGE HOME TODAY. CALL LITE IN EASY REACH.
[2017-10-20 07:30] VITALS: BP 116/54
[2017-10-20 07:39] LABS: HEMATOCRIT 36.2 % (42.0-52.0); HEMOGLOBIN 11.9 gm/dL (14.0-18.0); MCH 30.4 pg (26.0-34.0); MCV 92.3 fL (80.0-100.0); MPV 6.7 fl. (7.2-11.1); RBC 3.92 mil/uL (4.50-6.00); WBC 7.5 thou/uL (4.0-11.0)
[2017-10-20 07:47] LABS: CALCIUM 8.8 mg/dL (8.5-10.1); POTASSIUM 4.1 mmol/L (3.5-5.1)
[2017-10-20 13:47] VITALS: BP 128/66
--- NOTE | 2017-10-20 13:51 | NUR ---
MARTINEZ met with pt and pt to finalize safe dc planning for pt to dc home with today. Team recommending HH services to follow; pt only wants physical therapy and pt and pt preference for [facility]. MARTINEZ faxed referral and orders and med list to [facility] [phone] fax [phone]. Pt family to provide pt ride home.
--- NOTE | 2017-10-20 14:16 | NUR ---
PATIENT AND SPOUSE GIVEN DISCHARGE INSTRUCTIONS AT THIS TIME. PATIENT AND SPOUSE VERBALIZED UNDERSTANDING IN REGARDS TO MEDICATIONS AND FOLLOW UP APPOINTMENTS. PATIENT DISCHARGED TO HOME WITH ALL BELONGINGS AND TO HOME WITH AND HOME HEALTH.
--- NOTE | 2017-10-29 11:21 | H ---
[facility] [address] [place] [address] HISTORY AND PHYSICAL Name: MICHELLE MCKAY Medina Room: [address]#: [id number] Admission: 10/03/17 Attend Phys: Chichi Jorgensen DO Discharge: 10/20/17 Date of : 41 Report #: [id number] THIS REPORT FOR: //name// CC: Chichi Mendieta DATE OF SERVICE: 10/03/2017 HISTORY OF PRESENT ILLNESS: This is a male admitted with a Parkinson's exacerbation, status post acute hospitalization. Previous level of function was independent with activities to modified independent with activities of daily living. Current level of function is minimum to moderate assistance with activities of daily living depending on therapy, activity and time of day. Estimated length of stay is 14-16 days with discharge disposition to the home setting with supportive family. No changes since the preadmission screening. PAST MEDICAL HISTORY: Unchanged from consultation. FAMILY HISTORY: Unchanged from consultation. SOCIAL HISTORY: Unchanged from consultation. ALLERGIES: No known drug allergies. MEDICATIONS: Reviewed and reconciled by myself and are available in the MAR. REVIEW OF SYSTEMS: A 14-point review of systems is done today, is negative except as mentioned in HPI, specifically no fever, chest pain, shortness of breath, abdominal pain or distention. ASSESSMENT: 1. Parkinson's exacerbation. 2. Debility with alterations in activities of daily living. 3. Multiple medical comorbidities requiring acute daily medical care. PLAN: 1. Admission to inpatient rehabilitation to facilitate safe discharge to the home setting. 2. PT, OT, speech, language, case management, nursing and HIMS to make evaluations and recommendations. 3. Plan of care is pending and we will team him weekly. 4. Laboratories on day after arrival. <ELECTRONICALLY SIGNED> By: Chichi Jorgensen DO 10/29/17 1121 1933 2001Chichi Jorgensen DO /nt
--- NOTE | 2017-10-29 11:21 | PLAN ---
[facility] [address] [place] [address] REHAB UNIT PLAN OF CARE Name: NELYMICHELLE W Room: [address] IN [facility]#: [id number] Admission: 10/03/17 Attend Phys: Chichi Jorgensen DO Discharge: 10/20/17 Date of : 41 Report #: [id number] THIS REPORT FOR: //name// CC: Chichi Mendieta OVERALL PLAN OF CARE SUBJECTIVE: This is a male admitted with Parkinson's exacerbation, status post acute hospitalization. MEDICAL PROGNOSIS: Good. REHABILITATION PROGNOSIS: Good. Estimated length of stay is 14-16 days with discharge disposition to home setting where he has supportive family. Previous level of function was modified independent, independent with activities of daily living. Current level of function is minimum to moderate assistance 1-2 depending on therapy, activity and time of day. Physical therapy will see the patient 60-90 minutes per day, 5 days per week, working on upper and lower body strength, balance, coordination, navigation. Occupational therapy will work with the patient 60-90 minutes per day, 5 days per week, working on upper and lower body strength, balance, coordination, navigation, bathing, dressing, and toileting. Speech language pathology will work with the patient 30-90 minutes per day, 5 days per week, working on cognition, expression, memory. This is an overall plan of care, it may change from time to time. We will team weekly and make changes to the plan of care as needed. <ELECTRONICALLY SIGNED> By: Chichi Jorgensen DO 10/29/17 1121 1934 [id number] Jorgensen DO /nt
--- NOTE | 2017-11-13 12:46 | D ---
[facility] [address] [place] [address] DISCHARGE SUMMARY Name: NELYMICHELLE Medina Room: [address] IN ..#: [id number] Admission: 10/03/17 Attend Phys: Chichi Jorgensen DO Discharge: 10/20/17 Date of : 41 Report #: [id number] THIS REPORT FOR: //name// CC: Chichi Mendieta DATE OF SERVICE: 10/20/2017 DISCHARGE DIAGNOSIS: Parkinson's exacerbation. DISCHARGE DISPOSITION: To home with home health, PT, OT, nursing, social work and speech and language pathology. Primary care physician follow up in 2 weeks. Neurological follow up in 1 month. Notifications for physician were given. DIET: Heart healthy diet on discharge. LIMITATIONS: Fall precautions. MEDICATIONS: Reviewed and are available in the [facility]. Appropriate prescriptions were given for one month's time. DISCHARGE PHYSICAL EXAMINATION: GENERAL: Alert, oriented, no apparent distress. VITAL SIGNS: Reviewed and are stable. HEENT: Head: Atraumatic, normocephalic. Pupils equal, round, reactive. ABDOMEN: Soft, nontender, nondistended. NEUROLOGIC: Cranial nerves 2-12 are grossly intact with no focal neuro deficits, 5/5 strength in the bilateral upper and lower extremities. <ELECTRONICALLY SIGNED> By: Chichi Jorgensen DO 11/13/17 1246 1245 [id number] Jorgensen DO /jorje
== END 2017-10-20 14:24 | disposition home health service (06) | DRG 56 ==
LOC: M.REH 15:42
PROVIDERS: Family Medicine; Internal Medicine; ADMIT Physical Medicine & Rehabilitation
DX: G20 Parkinson's disease (principal); J69.0 Pneumonitis due to inhalation of food and vomit; A41.9 Sepsis, unspecified organism; R53.81 Other malaise; E78.00 Pure hypercholesterolemia, unspecified; F02.80 Dementia in other diseases classified elsewhere, unspecified severity, without behavioral disturbance, psychotic disturbance, mood disturbance, and anxiety; D64.9 Anemia, unspecified; M41.9 Scoliosis, unspecified; R13.10 Dysphagia, unspecified; Z79.899 Other long term (current) drug therapy; Z79.82 Long term (current) use of aspirin

== ENCOUNTER 2017-12-04 11:14 | Inpatient (IN) | payer MEDICARE, OTHER ==
[~2017-12-04] VITALS: Ht 167.6 cm; Wt 76.2 kg
[2017-12-04] VITALS (11 sets, daily range): BP systolic 95–135; BP diastolic 51–76
[~2017-12-04 11:14] MED LIST changes: +COLACE100 MG PO; +MELATONIN5 M1 PO; +TYLENOL325 MG PO
[2017-12-04 11:46] LABS: HEMATOCRIT 31.8 % (42.0-52.0); HEMOGLOBIN 10.4 gm/dL (14.0-18.0); MCH 29.4 pg (26.0-34.0); MCHC 32.6 g/dL (28.0-37.0); MPV 7.3 fl. (7.2-11.1); NUCLEATED RBCS 0 /100WBC; PLATELET COUNT* 535 thou/uL (150-400); RBC 3.54 mil/uL (4.50-6.00); RDW-CV 18.2 % (10.5-14.5); WBC 16.7 thou/uL (4.0-11.0)
[2017-12-04 11:55] LABS: ANION GAP 11 mmol/L (7-16); BUN 44 mg/dL (7-18); CALCIUM 8.1 mg/dL (8.5-10.1); CHLORIDE 100 mmol/L (98-107); CO2 23 mmol/L (21-32); CREATININE 1.8 mg/dL (0.6-1.3); GLUCOSE 89 mg/dL (70-99); POTASSIUM 4.4 mmol/L (3.5-5.1); SODIUM 134 mmol/L (136-145)
[2017-12-04 11:57] LABS: INR 1.2; PROTIME 11.9 Seconds (9.20-11.50)
[2017-12-04 12:14] LABS: ALKALINE PHOSPHATASE 997 U/L (46-116); CK-MB MASS < 0.5 ng/mL (<0.5-3.6); NT-PRO BRAIN NAT PEPTIDE 554 pg/mL (<300); SGOT 394 U/L (15-37); SGPT 123 U/L (30-65); TOTAL BILIRUBIN 3.4 mg/dL (<0.1-1.0); TOTAL PROTEIN 6.1 g/dL (6.4-8.2); TROPONIN-I LEVEL <0.06 ng/mL (<0.06)
[2017-12-04 12:38] LABS: ABSOLUTE LYMPHOCYTES 1.2 thou/uL (0.8-5.3); ABSOLUTE MONOCYTES 0.5 thou/uL (0.0-1.2); PLATELET ESTIMATE INCREASED
[2017-12-04 12:39] LABS: ANISOCYTOSIS 1+
--- NOTE | 2017-12-04 12:51 | NUR ---
ABDOULAYE NOTIFIED UPON PT RETURN FROM CT. PT CONNECTED TO MONITOR AND O2
[2017-12-04 13:28] LABS: URINE BLOOD NEGATIVE (Negative); URINE CLARITY CLEAR; URINE COLOR DARK YELLOW; URINE GLUCOSE-RANDOM NEGATIVE (Negative); URINE KETONES NEGATIVE (Negative); URINE LEUKOCYTES-REFLEX NEGATIVE (Negative); URINE NITRITE-REFLEX NEGATIVE (Negative); URINE PROTEIN 1+ (Negative); URINE SPECIFIC GRAVITY >= 1.030 (1.005-1.030)
[2017-12-04 13:32] LABS: ICTOTEST (BILI CONFIRMATORY) Positive (Negative); URINE BILIRUBIN 2+ (Negative)
--- NOTE | 2017-12-04 15:52 | NUR ---
PATIENT TRANSFERRED TO UNIT FROM ER AT 1500. PATIENT AOX4, BUT LETHARGIC. SEPSIS POSITIVE. 3L NS BOLUS GIVEN IN ER. BLOOD PRESSURE STABLE. TRACING NSR ON MANAGER MEMBERSHIP AT THIS TIME. PATIENT ON 2L NC. RATES PAIN 6/10 IN BACK WHICH HE STATES IS CHRONIC BACK PAIN. WHEN PATIENT ASKED WHAT PAIN LEVEL IS COMFORTABLE FOR HIM HE STATED 6 IS COMFORTABLE AND HE DOES NOT REQUIRE ANY MEDICATION AT THIS TIME. PRESENT, UPDATED BY PHYSICIAN AND NURSE. LACTIC ACID REDRAW 1.8. WILL CONTINUE WITH PLAN OF CARE.
--- NOTE | 2017-12-04 16:34 | EKG ---
[place] [address] ELECTROCARDIOGRAM REPORT Name: MICHELLE MCKAY Room: [address] IN M.R.#: [id number] Admission: 12/04/17 Attend Phys: Farzad Oliva Discharge: Date of : 41 Report #: [id number] THIS REPORT FOR: //name// [facility] ED Test Date: 2017-12-04 Test Time: 12:01:50 Pat Name: MICHELLE MCKAY Department: Room: [facility] Gender: Tobacco Sorter: Benton HICKEY : 1945 Requested By: Tino Nj Order Number: [id number] MD: Justyn Taylor Measurements Intervals Rough And Ready Rate: 70 P: 37 WV: 138 QRS: 13 QRSD: 93 T: 18 QT: 403 QTc: 435 Interpretive Statements Sinus rhythm Borderline low voltage, extremity leads Compared to ECG 09/13/2017 11:08:27 No significant changes Electronically Signed On 12-04-2017 16:33:59 CDT by Justyn Taylor [email or web address] <ELECTRONICALLY SIGNED> By: Justyn Taylor MD, [facility] 12/04/17 1633 1201 1201 Justyn Taylor MD, [facility] /EPI
--- NOTE | 2017-12-04 17:03 | 2DMMODE ---
[place] [address] 2 D/M-MODE ECHOCARDIOGRAM Name: NELYMICHELLE Medina Room: [address] IN [facility]#: [id number] Admission: 12/04/17 Attend Phys: Elvin Kebede Discharge: Date of : 41 Date of Service: 12/04/17 1703 Report #: [id number] THIS REPORT FOR: //name// APPROVED REPORT Study performed: 12/04/2017 16:20:36 EXAM: Comprehensive 2D, Doppler, and color-flow Echocardiogram Patient Location: In-Patient Room #: [facility] Status: routine BSA: 1.85 HR: 73 bpm BP: 135/72 mmHg Rhythm: NSR Other Information Study Quality: Good Indications Sepsis ARF, peritoneal masses 2D Dimensions LVEF(%): 67.40 (>50%) IVSd: 6.29 (7-11mm) LVOT Diam: 21.01 (18-24mm) LVDd: 46.31 mm PWd: 8.21 (7-11mm) Ascending Ao: 35.77 (22-36mm) LVDs: 29.01 (25-40mm) Aortic Root: 34.69 mm Davey's LVEF: 67.40 % Volumes Left Atrial Volume (Systole) LA ESV Index: 25.10 mL/m2 Aortic Valve AoV Peak Cy.: 1.52 m/s AO Peak Gr.: 9.19 mmHg LVOT Max P.65 mmHg AO Mean Gr.: 3.93 mmHg LVOT Mean P.71 mmHg LVOT Max V: 1.29 m/s AO V2 VTI: 24.19 cm LVOT Mean V: 0.74 m/s CRISTIAN (VTI): 3.88 cm2 LVOT V1 VTI: 27.08 [place] [address] 2 D/M-MODE ECHOCARDIOGRAM Name: MICHELLE MCKAY Room: [address] IN [facility]#: [id number] Admission: 12/04/17 Attend Phys: Elvin Kebede Discharge: Date of : 41 Date of Service: 12/04/17 1703 Report #: [id number] E/A Ratio: 1.01 MV Decel. Time: 246.56 ms MV E Max Cy.: 0.70 m/s MV PHT: 71.50 ms MVA (PHT): 3.08 cm2 TDI E/Lateral E': 5.83 E/Medial E': 8.75 Medial E' Cy.: 0.08 m/s Lateral E' Cy.: 0.12 m/s Pulmonary Valve PV Peak Cy.: 1.31 m/s PV Peak Gr.: 6.88 mmHg Tricuspid Valve RAP Estimate: 5.00 mmHg TR Peak Gr.: 29.27 mmHg RVSP: 34.27 mmHg PA Pressure: 34.27 mmHg Left Ventricle The left ventricle is normal size. There is normal LV segmental wall motion. There is normal left ventricular wall thickness. Left ventricular systolic function is normal. The left ventricular ejection fraction is within the normal range. LVEF is 60-65%. The left ventricular diastolic function is normal. Right Ventricle The right ventricle is normal size. The right ventricular systolic function is normal. Atria The left atrium size is normal. The right atrium size is normal. Aortic Valve Mild aortic valve sclerosis. No aortic regurgitation is present. There is no aortic valvular stenosis. Mitral Valve The mitral valve is normal in structure. There is no mitral valve regurgitation noted. No evidence of mitral valve stenosis. Tricuspid Valve The tricuspid valve is normal in structure. Trace tricuspid regurgitation. [place] [address] 2 D/M-MODE ECHOCARDIOGRAM Name: MICHELLE MCKAY Room: [address] IN ..#: [id number] Admission: 12/04/17 Attend Phys: Elvin Kebede Discharge: Date of : 41 Date of Service: 12/04/17 1703 Report #: [id number] Pulmonic Valve The pulmonary valve is normal in structure. Trace pulmonic regurgitation. Great Vessels The aortic root is normal in size. IVC is normal in size and collapses with >50% inspiration Pericardium There is no pericardial effusion. <Conclusion> The left ventricle is normal size. There is normal left ventricular wall thickness. Left ventricular systolic function is normal. The left ventricular ejection fraction is within the normal range. LVEF is 60-65%. The right ventricle is normal size. The left atrium size is normal. Mild aortic valve sclerosis. No aortic regurgitation is present. There is no aortic valvular stenosis. The mitral valve is normal in structure. The tricuspid valve is normal in structure. IVC is normal in size and collapses with >50% inspiration There is no pericardial effusion. There is normal LV segmental wall motion. <ELECTRONICALLY SIGNED> By: Justyn Taylor MD, FACC 12/04/171702 02 02 Justyn Taylor MD, FACC /INF
--- NOTE | 2017-12-04 17:45 | NUR ---
NO CHANGES IN PATIENT ASSESSMENT SINCE ADMISSION. GI CONSULTED FOR PERITONEAL MASSES SHOWN ON CT PER DR BARRIENTOS, CONSULT CALLED TO OFFICE. PATIENT ON CLEAR LIQUID DIET AT THIS TIME. ASSISTING PATIENT WITH LIQUIDS FOR DINNER. PROVIDED WITH WATER. NS INFUSING @100ML/HR WITH EXTENDED RELEASE ZOSYN INFUSING. PAIN CONTROLLED PER BASELINE PER PATIENT REPORT. DENIES FURTHER CONCERNS FOR NURSING STAFF.
--- NOTE | 2017-12-04 21:58 | NUR ---
PT. TOLERATING COLONSCOPY PREP WELL, COPIOUS AMOUNTS LIQUID STOOL, FLEXISEAL PLACED. DRAINAING WELL. PT. HAS FINISHED NEARLY 2L OF PREP AT THIS TIME.
[2017-12-05] VITALS (16 sets, daily range): BP systolic 99–125; BP diastolic 49–76
--- NOTE | 2017-12-05 05:06 | NUR ---
PT. TOLERATED CLOSE TO 2L OF BOWEL PREP THIS SHIFT. DISORIENTED THIS A.M., REORIENTED. USES CALL LIGHT APPROPRIATELY. FLEXISEAL UNABLE TO STAY IN PLACE, DC'D. IVF INFUSING. DENIES NEEDS AT THIS TIME, WILL CONTINUE TO MONITOR.
--- NOTE | 2017-12-05 10:05 | NUR ---
INTERDISICPLINARY ROUNDS: PT AND MEETING WITH DR. ARANGO ADMITTED WITH SEPSIS AND POSSIBLE MASS. TO HAVE SCOPE LATER TODAY. PT KNOWN TO CM FROM PREVIOUS HOSPITAL AND ACUTE INPT REHAB STAY IN OCTOBER. [facility] WITH [facility]. AT THAT TIME, PT HAD WALKER, GRAB BARS AND WORE A BACK BRACE. WILL FOLLOW
[2017-12-05 10:17] LABS: ABSOLUTE BASOPHILS 0.1 thou/uL (0.0-0.2); ABSOLUTE LYMPHOCYTES 1.1 thou/uL (0.8-5.3); ABSOLUTE MONOCYTES 1.6 thou/uL (0.0-1.2); ABSOLUTE NEUTROPHILS 16.9 thou/uL (1.6-8.1); BASOPHILS 0.6 %; EOSINOPHILS 0.2 %; HEMATOCRIT 31.3 % (42.0-52.0); LYMPHOCYTES 5.5 %; MCH 29.6 pg (26.0-34.0); MCV 92.3 fL (80.0-100.0); MPV 8.1 fl. (7.2-11.1); NUCLEATED RBCS 0 /100WBC; PLATELET COUNT* 490 thou/uL (150-400); POLYS 85.7 %; RBC 3.39 mil/uL (4.50-6.00); RDW-CV 18.6 % (10.5-14.5); WBC 19.7 thou/uL (4.0-11.0)
[2017-12-05 10:59] LABS: ALBUMIN 1.8 g/dL (3.4-5.0); CALCIUM 7.8 mg/dL (8.5-10.1); CREATININE 1.6 mg/dL (0.6-1.3); POTASSIUM 4.6 mmol/L (3.5-5.1); TOTAL BILIRUBIN 3.5 mg/dL (<0.1-1.0); TOTAL PROTEIN 5.2 g/dL (6.4-8.2)
--- NOTE | 2017-12-05 13:18 | NUR ---
DR BARRIENTOS NOTIFIED OF PT BG 68. WILL MONITOR. NO NEW ORDERS.
--- NOTE | 2017-12-05 14:52 | NUR ---
PT TO SURGERY FOR COLONOSCOPY.
--- NOTE | 2017-12-05 15:46 | NUR ---
PT BACK FROM COLONOSCOPY. VSS. DROWSY. IVF INFUSING.
--- NOTE | 2017-12-05 18:10 | NUR ---
PT CARE ASSUMED AFTER REPORT. SR ON MONITOR. IVF INFUSING. CRUZ TO DD. O2 2L NC. PT AND DAUGHTER INFORMED AFTER COLONOSCOPY THAT HE IS TO HAVE A LIVER BIOPSY THE DR BELIEVES HE HAS CANCER. PT AND FAMILY AGREE TO HAVE IT. AND DAUGHTER AT BEDSIDE THROUGHOUT THE DAY. FALL PRECAUTIONS IN PLACE. SLOWLY PROGRESSING TOWARDS SOME GOALS.
[2017-12-05 18:29] LABS: CALCIUM 7.9 mg/dL (8.5-10.1); CREATININE 1.5 mg/dL (0.6-1.3); POTASSIUM 3.9 mmol/L (3.5-5.1)
[2017-12-06] VITALS (14 sets, daily range): BP systolic 97–127; BP diastolic 56–75
--- NOTE | 2017-12-06 13:19 | NUR ---
PATIENT TRANSFERED TO ROOM 230 BY BED WITH CINDER MAN. GATHERED ALL BELONGINGS AND WERE TAKEN UP WITH PATIENT. REPORT GIVEN TO THI, ALL QUESTIONS ANSWERED.
--- NOTE | 2017-12-06 14:53 | NUR ---
PATIENT TRANSFERRED IN FROM ICU THIS AFTERNOON. PATIENT IS ALERT AND ORIENTED X 3. HE DENIES CURRENT PAIN. IV FLUIDS RESTARTED. PATIENT ASSISTED TO REPOSITION. IS AT THE BEDSIDE. TELE SHOWS NSR. CRUZ IS TO DD.PATIENT ORIENTED TO ROOM AND PROCEDURES. BED ALARM IS ON AND CALL LIGHT IS IN REACH
[2017-12-07] VITALS: BP 112/74
[2017-12-07 04:00] VITALS: BP 112/63
--- NOTE | 2017-12-07 05:01 | NUR ---
ASSUMED PT CARE AT 1930. ASSESSMENT COMPLETED CHARTED. PT IS CONFUSED AT NIGHT, A&OX3 MOST OF THE DAY. IVF AND ABT GIVEN PER P.O. ABLE TO MAKE SOME NEEDS KNOWN. PT REFUSED LAB TO TAKE BLOOD THIS MORNING, GRABBING HER HAND WITH A PHOTOGRAPHIC LABORATORY TECHNICIAN AND WOULDNT LET GO. ON BEDREST, CRUZ DRAINING NORMALLY, AND PT RESTING IN BED AT THIS TIME. WILL CONTINUE TO MONITOR.
[2017-12-07 08:43] LABS: HEMATOCRIT 29.2 % (42.0-52.0); HEMOGLOBIN 9.4 gm/dL (14.0-18.0); MCH 29.6 pg (26.0-34.0); MCHC 32.1 g/dL (28.0-37.0); MCV 92.1 fL (80.0-100.0); RBC 3.17 mil/uL (4.50-6.00); RDW-CV 18.9 % (10.5-14.5); WBC 16.4 thou/uL (4.0-11.0)
[2017-12-07 08:55] LABS: ALBUMIN 1.5 g/dL (3.4-5.0); CALCIUM 7.7 mg/dL (8.5-10.1); CREATININE 1.7 mg/dL (0.6-1.3); MAGNESIUM 2.3 mg/dL (1.8-2.4); TOTAL PROTEIN 5.2 g/dL (6.4-8.2)
--- NOTE | 2017-12-07 10:16 | NUR ---
ASSUMED PT CARE AT 0700 PT IS ALERT AND ORIENTED X 3 PT C/O PAIN DENIES SOA, PT REFUSED REQUIP AT 0600 ACCORDING TO DOCUMENTATION UPSET HE DID NOT GET REQUIP THIS NURSE EDUCATED AND DAUGHTER THAT PT REFUSED PEQUIP AT 0600 PT WILL GET A DOSE AT 1400 AND THAT DOSE CAN BE GIVEN EARLY AND DAUGHTER BECAME HYSTERICAL INAPPROPIRATELY THIS NURSE EDUCATED THAT THE DOSE CAN NOT BE GIVEN NOW IT IS SCHEDULED A CERTAIN WAY FOR A REASON AND IT WOULD BE TOO CLOSE TOGEHTER IF GIVEN NOW BOTH STATED UNDERSTANDING, PT IS TURNED Q 2 HOURS, PT WENT DOWN FOR ULTRASOUND AND IS BACK WILL CONTINUE TO MONITOR
[2017-12-07 12:33] VITALS: BP 124/73
[2017-12-07 16:00] VITALS: BP 118/75
[2017-12-07 20:00] VITALS: BP 122/70
[2017-12-08] VITALS (7 sets, daily range): BP systolic 98–123; BP diastolic 53–78
--- NOTE | 2017-12-08 05:13 | NUR ---
ASSUMED PT CARE AT 1930. ASSESSMENT COMPLETED CHARTED. C/O CHRONIC BACK PAIN AND GAVE PRN TYLENOL PER P.O. IN ROOM ALL NIGHT, PT RESTING IN BED COMFORTABLY. ABLE TO MAKE SOME NEEDS KNOWN. BEDREST WITH CRUZ DRAINING HUY URINE. WILL CONTINUE TO MONITOR.
[2017-12-08 05:14] LABS: HEMATOCRIT 28.8 % (42.0-52.0); HEMOGLOBIN 9.3 gm/dL (14.0-18.0); MCH 29.6 pg (26.0-34.0); MCHC 32.4 g/dL (28.0-37.0); MCV 91.2 fL (80.0-100.0); MPV 8.2 fl. (7.2-11.1); RBC 3.16 mil/uL (4.50-6.00); RDW-CV 19.3 % (10.5-14.5); WBC 15.7 thou/uL (4.0-11.0)
[2017-12-08 05:35] LABS: ALBUMIN 1.4 g/dL (3.4-5.0); CALCIUM 7.6 mg/dL (8.5-10.1); CREATININE 1.8 mg/dL (0.6-1.3); MAGNESIUM 2.3 mg/dL (1.8-2.4); TOTAL BILIRUBIN 2.7 mg/dL (<0.1-1.0); TOTAL PROTEIN 5.1 g/dL (6.4-8.2)
--- NOTE | 2017-12-08 11:58 | NUR ---
ATTEMPTED TO SEE PATIENT FOLLOWING ORDERS FOR SWALLOW/COGNTION/COMNUNICATION. CLEARED TO SEE BY RN WHO STATED PT WAS ABLE TO TAKE SMALL PILLS BY MOUTH WITHOUT S/S OF ASPIRATION, BUT WAS VERY ILL AND AND JUST GIVEN PAIN KILLER, BUT THAT ELECTROMECHANICAL INSPECTOR COULD TRY. ATTEMPTED, BUT PATIENT'S REFUSED EVALUATION STATING "HE'S IN NO SHAPE TO TALK TO ANYBODY." SHE STATED HE WAS FINALLY SLEEPING AND SHE DID NOT WANT HIM TO BE WOKEN. ELECTROMECHANICAL INSPECTOR STATED SHE COULD CHECK LATER, PATIENT'S SAID "NO, OUR WORLD IS SHATTERING." AGREED TO TRY TOMORROW.
--- NOTE | 2017-12-08 12:00 | NUR ---
ASSUMED CARE OF PATIENT AFTER RECEIVING REPORT FROM NOC RN. PT ORIENTED TO SELF AND SITUATION. PT APPEARING IN PAIN, GIVEN PRN MED PER JUN MORPHINE 2 MG AFTER CONSULTATION WITH DR. COLBERT R/T LABS. ASSESSMENT COMPLETE, DOCUMENTED. MEDS PER JUN. O2 SAT 95% ON 5L NC/MIN. IV INFUSING IV ABX ORDERED. FREQUENT REPOSITIONING TO MAINTAIN SKIN INTEGRITY. CALL LIGHT IN REACH. FAMILY AT BEDSIDE.
[2017-12-09 04:39] VITALS: BP 112/63
[2017-12-09 04:51] LABS: HEMATOCRIT 31.3 % (42.0-52.0); MCH 29.4 pg (26.0-34.0); MCHC 32.1 g/dL (28.0-37.0); MCV 91.7 fL (80.0-100.0); MPV 8.1 fl. (7.2-11.1); RBC 3.41 mil/uL (4.50-6.00); RDW-CV 19.4 % (10.5-14.5); WBC 16.6 thou/uL (4.0-11.0)
[2017-12-09 05:00] LABS: APTT 35.2 Seconds (25.0-31.3); INR 1.2; PROTIME 12.1 Seconds (9.20-11.50)
--- NOTE | 2017-12-09 05:03 | NUR ---
ASSUMED PT CARE AT 1930. ASSESSMENT COMPLETED CHARTED. PT RESTING COMFORTABLY IN BED AT THIS TIME. BEDREST WITH CRUZ. ABLE TO MAKE SOME NEEDS KNOWN, AT BEDSIDE, TEARFUL AND WORRYSOME ABOUT HUSBANDS CONDITION. TRIED COMFORTING BUT SHE WAS WANTING SPACE. C/O BACK AND SHOULDER PAIN AND GAVE MORPHINE FOR PAIN AND TO HELP HIM SLEEP. WILL CONTINUE TO MONITOR.
[2017-12-09 05:15] LABS: ALBUMIN 1.5 g/dL (3.4-5.0); CALCIUM 8.1 mg/dL (8.5-10.1); CREATININE 1.8 mg/dL (0.6-1.3); POTASSIUM 4.1 mmol/L (3.5-5.1); TOTAL PROTEIN 5.4 g/dL (6.4-8.2)
[2017-12-09 08:38] VITALS: BP 102/82
[2017-12-09 12:29] VITALS: BP 119/80
[2017-12-09 13:11] LABS: BE -2.4 mmol/L (-2 to +3); HCO3 22.9 mmol/L (22.0-26.0); PCO2 41.4 mmHg (35.0-45.0); PO2 71.5 mmHg (75.0-100.0); pH 7.361 (7.340-7.450)
--- NOTE | 2017-12-09 17:01 | NUR ---
MARTINEZ discussed dc planning with Dr Cruz regarding probable need for pt to dc to SNF; MARTINEZ to discuss with pt/pt family about placement and SW to continue to assist with safe dc planning.
[2017-12-09 20:00] VITALS: BP 131/77
[2017-12-10] VITALS: BP 120/66
[2017-12-10 04:00] VITALS: BP 111/63
--- NOTE | 2017-12-10 04:11 | NUR ---
ASSUMED PT CARE AT 1930. ASSESSMENT COMPLETED CHARTED. ABLE TO MAKE SOME NEEDS KNOWN. PT RESTING IN BED COMFORTABLY AT THIS TIME, Q2HR TURNS, PAIN MEDICATION GIVEN NEEDED. IV SL AT THIS TIME. WILL CONTINUE TO MONITOR.
[2017-12-10 08:37] VITALS: BP 132/66
[2017-12-10 11:00] VITALS: BP 124/84
--- NOTE | 2017-12-10 16:49 | NUR ---
SW met with pt and pt dtr to discuss safe dc planning, placement options, possible hospice, support services available. Pt family understanding and expressed that they would be unable to care for pt at home; they were wondering if a hospice house situation would be a possibility. SW explained there would be certain criteria for pt to be accepted to a hospice house, but that if that was not an option, pt would be able to transition to a LTC facility with hospice services. SW provided resources and emotional support. SW to continue to follow to send referrals as needed and assist with safe dc planning.
[2017-12-10 17:17] VITALS: BP 129/81
[2017-12-10 19:55] VITALS: BP 120/75
[2017-12-11] VITALS: BP 118/61
[2017-12-11 04:00] VITALS: BP 128/65
--- NOTE | 2017-12-11 04:33 | NUR ---
END SHIFT: AT BEDSIDE. PT HAS BEEN VERY WITHDRAWN. WILL NOT ANSWER QUESTIONS OR MAKE EYE CONTACT. GROANS OCCASIONALLY. WILL NOT FOLLOW COMMANDS. PT APPEARS MORE JAUNDICED. SR ON MONITOR. 3+ BILAT PEDAL AND SCROTAL EDEMA NOTED. CRUZ DRAINING ADEQUATE. 4L NC REMAINS IN PLACE. PT IS HAVING INCREASED DIFFICULTY SWALLOWING AND TAKING PILLS. COUGHING AND GURGLING NOTED AFTER ANY INTAKE. PT HAS REMAINED NPO FOR MOST OF THIS SHIFT DUE TO THIS. ORAL CARE PROVIDED. SAFETY PRECAUTIONS IN PLACE. VSS. CALL LIGHT WITHIN REACH. WILL CONT TO MONITOR.
[2017-12-11 05:02] LABS: HEMATOCRIT 30.8 % (42.0-52.0); HEMOGLOBIN 9.7 gm/dL (14.0-18.0); MCH 28.7 pg (26.0-34.0); MCHC 31.4 g/dL (28.0-37.0); MCV 91.3 fL (80.0-100.0); MPV 7.9 fl. (7.2-11.1); RBC 3.37 mil/uL (4.50-6.00); WBC 18.3 thou/uL (4.0-11.0)
[2017-12-11 05:23] LABS: CALCIUM 7.8 mg/dL (8.5-10.1); CREATININE 2.6 mg/dL (0.6-1.3); MAGNESIUM 2.6 mg/dL (1.8-2.4); POTASSIUM 4.8 mmol/L (3.5-5.1)
[2017-12-11] MEDS ORDERED: LORAZEPAM I2 MG/1 ML PO (11:25)
[2017-12-11] MEDS ORDERED: MSL20MG/ML PO (11:25)
--- NOTE | 2017-12-11 11:26 | NUR ---
MET WITH PT'S /AARON AND DR COLBERT TO DISCUSS POC AND HOSPICE. IN AGREEMENT, THEY DO NOT WANT TO PURSUE ANY FURTHER TX AND WANT PT TO BE COMFORTABLE. UNDERSTOOD THAT DR COLBERT EXPLAINED PT WOULD NOT BE ABLE TO TOLERATE CHEMO IF INDICATED AND THAT IS IN ORGAN FAILURE. DISCUSSED HOSPICE OPTIONS, PREFERS A HOSPICE HOUSE CLOSEST TO HOME. CALLED AND FAXED REFERRAL TO [facility]. ASKED THAT EVAL BE DONE AT 1330 TODAY. PT HAS ORDERS TO DC IF ACCEPTED. TO GO HOME TO GET HER DTR AND WILL BE BACK
[2017-12-11 12:00] VITALS: BP 140/89
[2017-12-11 14:30] VITALS: BP 119/64
--- NOTE | 2017-12-11 16:09 | NUR ---
ASSUMED CARE OF PT AT 0710 PT REMAINS WITHDRAWN AND WILL NOT ANSWER QUESTIONS OR MAKE EYE CONTACT. PT MOANING IN PAIN AND WAS GIVEN PRN PAIN MEDS THAT SEEMED TO REDUCE THE AMOUNT OF PAIN THE PT WAS EXPERIENCES. PT TOOK MEDS THIS MORNING BUT HAD A LOT OF DIFICULTY SWALLOWING THE PILLS. PT VSS ON 4L VIA NC AND TRACING SR ON THE TRAFFIC OFFICER. PT DISCHARGED TO [facility]. REPORT CALLED TO ANDRA AT 1605. PT TRANSPORTED VIA AMBULANCE ACCOMPANIED BY EMT'S AND FOLLOWED BY . TOOK ALL OF THE PATIENTS PERSONAL BELONGINGS AT TIME OF DISCHARGE.
--- NOTE | 2017-12-12 09:22 | CON ---
[address] [address] CONSULTATION Name: NELYMICHELLE Meidna Room: [address] IN M.R.#: [id number] Admission: 12/04/17 Attend Phys: Farzad Oliva Discharge: 12/11/17 Date of : 41 Report #: [id number] THIS REPORT FOR: //name// CC: Elvin Mendieta HISTORY OF PRESENT ILLNESS: The patient is a 72-year-old male patient with a history of Parkinson disease and apparently had history of dysphagia in the past. He had a swallow evaluation back in October. He was at the rehab unit recovering, but after that, he presented to the Emergency Department with 3 days history of incontinence and has some increasing cough. There is no blood in the stool and he was not constipated. The patient had progressive weakness and decreased appetite, but no nausea, no vomiting, no diarrhea or chest pain. Although he looks short of breath, but he denied that. He is actually requiring 4 liters of oxygen. During my visit, I noticed he has some cough that sounded congested, although he was unable to produce any sputum. During this hospitalization, he had a CT scan of the abdomen that showed multiple masses in the liver suspicious for malignancy. He was planned for CT-guided biopsy of the liver lesion; however, because of the aspirin he was taking, he had to be off aspirin for 5 days before proceeding with a biopsy. When I saw him today, his was at the bedside, he looked weak and tired. He denied shortness of breath to me. He denied any pain, although overall he is a poor historian. HOME MEDICATIONS: He is on Aricept, Zetia, niacin, magnesium, Zyrtec, aspirin, Tylenol, melatonin, ibuprofen. PAST SURGICAL HISTORY: Include back surgery, nerve stimulator placement. PAST MEDICAL HISTORY: Parkinson's disease, hyperlipidemia, dementia, hypertension, previous history of pneumonia. SOCIAL HISTORY: Never smoked. Does not drink alcohol. Does not abuse drugs. REVIEW OF SYSTEMS: The patient basically denied any compliance, although he looked weak and fatigued and tired to me. A 12-system review of the patient negative other than as mentioned above. PHYSICAL EXAMINATION: VITAL SIGNS: He is on 4 liters oxygen, O2 saturation more than 90% with a respiratory rate of 21, pulse rate of 84, temperature 36.7. GENERAL: Chronically ill-looking gentleman who looks his stated age, awake, alert. HEENT: Head normocephalic, atraumatic. Pupils reactive to light, not pale, no jaundice. External ears look healthy and normal. Nasal cavity, patent passages. Oral cavity, dry mucous membranes. [place]ampati of [address]. [place] [address] CONSULTATION Name: MICHELLE MCKAY Room: [address] IN .R.#: [id number] Admission: 12/04/17 Attend Phys: Farzad Oliva Discharge: 12/11/17 Date of : 41 Report #: [id number] NECK: Supple. No palpable lymph nodes. No palpable thyroid. Trachea is central. CHEST: Diminished air movement bilaterally. No wheezes, but some rhonchi heard. ABDOMEN: Soft, lax, and nontender, although slightly guarding, no rigidity, no masses felt. EXTREMITIES: Lower extremity edema +1 to +2, equal bilaterally. No calf tenderness. PSYCHIATRIC: Mood and affect difficult to evaluate. NEUROLOGIC: He has some weakness noted overall. Cranial nerves are grossly normal. SKIN: Normal for age and race. He had multiple imagings during hospitalization. His chest x-ray showed infiltrates throughout the right lung with area of fluid overload and possible atelectasis on the left side. CT scan of the head was unremarkable. CT abdomen and pelvis demonstrated hepatic abnormality suspicious for malignancy with peritoneal carcinomatosis and small right pleural effusion and infiltrate on the right. White blood count upon hospitalization 19.7, hemoglobin 10, platelets 490. ABGs: 7.36/41/71. This was done on 4 liter oxygen. INR 1.2, creatinine 1.8, potassium 4.1. IMPRESSION: 1. Acute hypoxic respiratory failure. 2. Pulmonary infiltrate. 3. Signs of fluid overload. 4. Lower extremity edema. 5. Possible liver metastasis with abnormal CT scan of the abdomen. The patient with history of Parkinson disease. Suspect there is dysphagia, especially with infiltrates on the right side and progressive weakness. I am going to ask speech pathology to evaluate the patient. Meanwhile, he will be on a flutter valve and incentive spirometry. He is on Zosyn, which should cover for aspiration at this point. We will do a CT scan of his chest without contrast because of elevated creatinine for further evaluation. He will be on IS and a flutter valve and a scheduled nebulization treatment. Biopsy of the liver lesion is pending. We will follow along with you. Thank you for the consult. <ELECTRONICALLY SIGNED> By: Keenan Gray MD 12/12/17 0922 [id number] 1Dmyah Chen MD /nt
--- NOTE | 2018-01-01 13:22 | CON ---
[address] [address] CONSULTATION Name: MICHELLE MCKAY [place] Room: [address] IN .R.#: [id number] Admission: 12/04/17 Attend Phys: Farzad Oliva Discharge: 12/11/17 Date of : 41 Report #: [id number] THIS REPORT FOR: //name// CC: Elvin Mendieta DATE OF SERVICE: 12/05/2017 REASON FOR CONSULTATION: Suspected colon cancer. Consult placed by Dr. Elvin Kebede. HISTORY OF PRESENT ILLNESS: This is a very pleasant 72-year-old gentleman who presented to the ER with complaints of weakness and incontinence. The patient reports that for the last week, the patient noted incontinence with movement and coughing. The patient denies any diarrhea and reports that the stool is soft in consistency. The patient also reports decreased appetite, but he denies significant nausea, vomiting, diarrhea, or hematochezia. PAST MEDICAL HISTORY: The patient has a known history of hypertension and hyperlipidemia. The patient also has a history of Parkinson's disease. PAST SURGICAL HISTORY: The patient had a spinal nerve stimulator for back pain. FAMILY HISTORY: There is no significant history of GI related malignancies. 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 He never smoked, but was exposed to significant secondhand smoke from his father during childhood. Denies alcohol or recreational drug use. REVIEW OF SYSTEMS: Positive for weakness, lethargy, incontinence, back pain and intermittent abdominal pain. Otherwise, a comprehensive 10-point review of systems is negative. PHYSICAL EXAMINATION: VITAL SIGNS: Blood pressure is 119/64, temperature 36.9, pulse rate 76, respiratory rate 25. GENERAL: The patient is alert, awake, and oriented x 3. HEENT: Mucous membranes are moist. There is no congestion. Pupils are equal, round, and reactive to light and accommodation. NECK: Supple. There is no supraclavicular lymphadenopathy. CARDIOVASCULAR: Rate and rhythm regular, S1, S2 present. LUNGS: Clear to auscultation bilaterally. ABDOMEN: Soft, distended, fluid thrill is present. Tenderness to palpation in the right upper quadrant and epigastric region. EXTREMITIES: Warm and well perfused. [place] [address] CONSULTATION Name: MICHELLE MCKAY Room: [address]#: [id number] Admission: 12/04/17 Attend Phys: Farzad Oliva Discharge: 12/11/17 Date of : 41 Report #: [id number] SKIN: Dry and intact. LABORATORY DATA: Hemoglobin is 10.4, hematocrit , WBC count , platelet count 535. Total bilirubin is 3.4, AST 394, ALT 123, alkaline phosphatase 997. IMAGING: The liver is enlarged and appears diffusely homogeneous with apparent multiple mass and abnormal enhancement. Liver lesions are not well seen. Correlation with ultrasound or dedicated liver CT could evaluate further. The appearance is highly concerning for multiple lesions such as metastatic disease. Gallbladder is noted to demonstrate gallstone measuring 20-23 mm. Spleen is normal. There is small amount of ascites noted. There is no loculated fluid collection. Pancreas is normal. Retroperitoneal lymphadenopathy is not significantly enlarged. Bowel pattern is normal without obstruction. There are areas of nodularity lateral to the ascending colon in the paracolic gutters, which is concerning for peritoneal carcinomatosis, largest measures 19 x 16 mm. Focal inflammatory ____ related to colon is not explored. There is possible large mesenteric mass or node measuring 28 x 24 cm, it is difficult to separate from adjacent bowel. Moderate diverticula are noted in the left colon and appendix is not well seen. ASSESSMENT: This is a 72-year-old male who presented with weakness, lethargy and incontinence. The patient was found to have multiple liver lesions as well as a mesenteric mass concerning for metastatic disease with peritoneal carcinomatosis. The patient never had a colonoscopy before and therefore it is prudent to perform a colonoscopy to evaluate, to rule out colonic primary. PLAN: We will proceed with colonoscopy and further recommendations are based on the above. If the colonoscopy is negative, then the patient will need an IR-guided liver biopsy of the targeted lesion. <ELECTRONICALLY SIGNED> By: Julio Goldberg MD 01/01/18 1322 [id number] Goldberg MD /nt
== END 2017-12-11 16:05 | disposition hospice, inpatient (51) | DRG 871 ==
LOC: M.ERS 11:14 → M.TBA-ER 14:10 → M.ICU 14:10 → M.2W 12-06 13:22
PROVIDERS: Internal Medicine; Nurse Practitioner Psychiatric/Mental Health; ADMIT Internal Medicine
PROC: 0DJD8ZZ Inspection of Lower Intestinal Tract, Via Natural or Artificial Opening Endoscopic (ICD-10-PCS; principal; 2017-12-05)
DX: A41.9 Sepsis, unspecified organism (principal); N17.0 Acute kidney failure with tubular necrosis; J96.01 Acute respiratory failure with hypoxia; E43 Unspecified severe protein-calorie malnutrition; J18.9 Pneumonia, unspecified organism; C18.9 Malignant neoplasm of colon, unspecified; B17.9 Acute viral hepatitis, unspecified; R65.20 Severe sepsis without septic shock; G20 Parkinson's disease; E78.00 Pure hypercholesterolemia, unspecified; F02.80 Dementia in other diseases classified elsewhere, unspecified severity, without behavioral disturbance, psychotic disturbance, mood disturbance, and anxiety; R16.0 Hepatomegaly, not elsewhere classified; K66.9 Disorder of peritoneum, unspecified; N28.9 Disorder of kidney and ureter, unspecified; I10 Essential (primary) hypertension; E78.5 Hyperlipidemia, unspecified; Z77.22 Contact with and (suspected) exposure to environmental tobacco smoke (acute) (chronic); K76.9 Liver disease, unspecified; K57.30 Diverticulosis of large intestine without perforation or abscess without bleeding; R93.3 Abnormal findings on diagnostic imaging of other parts of digestive tract; R91.8 Other nonspecific abnormal finding of lung field; D63.8 Anemia in other chronic diseases classified elsewhere; R19.7 Diarrhea, unspecified; R79.89 Other specified abnormal findings of blood chemistry; Z79.899 Other long term (current) drug therapy; Z79.82 Long term (current) use of aspirin; Z87.01 Personal history of pneumonia (recurrent); Z68.37 Body mass index [BMI] 37.0-37.9, adult